=== PATIENT | male | born 1975 | race Caucasian/White ===

== ENCOUNTER → 2021-09-15 15:02 | Outpatient (CLI) | payer OTHER, SELFPAY | PROVIDERS: Referring Provider Internal Medicine; Visit Provider Internal Medicine | DX: Z23 Encounter for immunization (principal) | CPT/HCPCS: 90471; 90686 ==

== ENCOUNTER → 2022-10-05 12:04 | Outpatient (CLI) | payer OTHER, SELFPAY | PROVIDERS: Referring Provider Internal Medicine; Visit Provider Internal Medicine | DX: Z23 Encounter for immunization (principal) | CPT/HCPCS: 90471; 90686 ==

== ENCOUNTER → 2022-12-28 10:37 | Outpatient (CLI) | payer OTHER, SELFPAY ==
[2022-12-28 11:24] LABS: Add Manual Diff / Slide Review NO; Basophils Absolute Auto 0 /uL (0-100); Basophils Percent Auto 0.5 % (0-2); Eosinophils Absolute Auto 200 /uL (0-450); Eosinophils Percent Auto 3.4 % (2-4); Hematocrit 40.2 % (41-53); Hemoglobin 14.2 g/dL (13.5-17.5); Lymphocytes Absolute Auto 1800 /uL (1100-4500); Lymphocytes Percent Auto 27.2 % (25-40); Mean Corpuscular HGB Conc 35.4 % (30-36); Mean Corpuscular Hemoglobin 34.9 PG (26-34); Mean Corpuscular Volume 98.6 fL (80-100); Monocytes Absolute Auto 600 /uL (0-900); Monocytes Percent Auto 8.4 % (3-14); Neutrophils Absolute Auto 4100 /uL (1500-7000); Neutrophils Percent Auto 60.5 % (50-75); Platelet Count 234 X10^3/uL (150-400); Red Blood Cell Count 4.07 X10^6/uL (4.5-5.9); Red Cell Distribution Width 12.7 % (11.6-14.8); White Blood Cell Count 6.7 X10^3/uL (4.5-11.0)
[2022-12-28 11:52] LABS: Alanine Aminotransferase 35 IU/L (<50); Albumin 4.2 g/dL (3.5-5.0); Albumin Globulin Ratio 1.3 (1.0-2.8); Alkaline Phosphatase 55 U/L (38-126); Aspartate Aminotransferase 29 IU/L (17-59); Bilirubin Total 0.4 mg/dL (0.2-1.3); Blood Urea Nitrogen 15 mg/dL (9-20); Calcium 9.3 mg/dL (8.4-10.2); Carbon Dioxide 27 mmol/L (22-32); Chloride 101 mmol/L (98-107); Estimated Glomerular Filt Rate > 60 mL/min (>60); Globulin 3.3 g/dL (1.7-4.1); Glucose 99 mg/dL (70-100); HEMOLYSIS < 15 (0-50); Potassium 4.4 mmol/L (3.4-5.1); Sodium 137 mmol/L (137-145); Total Protein 7.5 g/dL (6.3-8.2)
[2022-12-28 12:40] LABS: Vitamin B12 273 pg/mL (239-931)
[2022-12-28 16:56] LABS: Hep C Virus Ab w/Reflex Quant NEGATIVE s/c (NEGATIVE)
[2023-01-02 03:41] LABS: Methylmalonic Acid,Serum 293 nmol/L (0-378)
== END ==
PROVIDERS: PCP Family Medicine; Referring Provider Family Medicine; Visit Provider Family Medicine
DX: Z11.59 Encounter for screening for other viral diseases (principal); I10 Essential (primary) hypertension; E78.5 Hyperlipidemia, unspecified; D75.89 Other specified diseases of blood and blood-forming organs
CPT/HCPCS: 36415; 80053; 82607; 83921; 85025; 86803

== ENCOUNTER → 2023-09-10 10:26 | Outpatient (CLI) | payer OTHER, SELFPAY | PROVIDERS: PCP Family Medicine; Referring Provider Family Medicine; Visit Provider Family Medicine | DX: Z23 Encounter for immunization (principal) | CPT/HCPCS: 90471; 90686 ==

== ENCOUNTER → 2023-10-24 08:36 | Outpatient (CLI) | payer OTHER, SELFPAY ==
[2023-10-28 14:44] LABS: Testosterone % Fr + Wkly bound 13.7 % (9.0-46.0); Testosterone Fr+Wkly bound 40.7 ng/dL (40.0-250.0); Testosterone, Total 296.9 ng/dL (264.0-916.0)
== END ==
PROVIDERS: PCP Family Medicine; Referring Provider Family Medicine; Visit Provider Family Medicine
DX: E78.5 Hyperlipidemia, unspecified (principal); I10 Essential (primary) hypertension
CPT/HCPCS: 36415; 84403

== ENCOUNTER → 2024-02-26 09:20 | Outpatient (CLI) | payer OTHER, SELFPAY ==
[2024-02-26 11:18] LABS: Add Manual Diff / Slide Review NO; Basophils Absolute Auto 0 /uL (0-100); Basophils Percent Auto 0.5 % (0-2); Eosinophils Absolute Auto 300 /uL (0-450); Hematocrit 41.7 % (41-53); Hemoglobin 14.5 g/dL (13.5-17.5); Lymphocytes Absolute Auto 2000 /uL (1100-4500); Lymphocytes Percent Auto 30.2 % (25-40); Mean Corpuscular HGB Conc 34.8 % (30-36); Mean Corpuscular Hemoglobin 35.1 PG (26-34); Mean Corpuscular Volume 100.7 fL (80-100); Monocytes Absolute Auto 600 /uL (0-900); Monocytes Percent Auto 8.9 % (3-14); Neutrophils Absolute Auto 3700 /uL (1500-7000); Neutrophils Percent Auto 55.4 % (50-75); Platelet Count 247 X10^3/uL (150-400); Red Blood Cell Count 4.14 X10^6/uL (4.5-5.9); Red Cell Distribution Width 12.7 % (11.6-14.8); White Blood Cell Count 6.6 X10^3/uL (4.5-11.0)
[2024-02-26 12:32] LABS: Alanine Aminotransferase 42 IU/L (<50); Albumin 4.1 g/dL (3.5-5.0); Albumin Globulin Ratio 1.4 (1.0-2.8); Alkaline Phosphatase 55 U/L (38-126); Aspartate Aminotransferase 34 IU/L (17-59); Bilirubin Total 0.6 mg/dL (0.2-1.3); Blood Urea Nitrogen 16 mg/dL (9-20); Calcium 8.7 mg/dL (8.4-10.2); Carbon Dioxide 26 mmol/L (22-32); Chloride 105 mmol/L (98-107); Cholesterol 206 mg/dL (140-199); Estimated Glomerular Filt Rate > 60 mL/min (>60); Globulin 2.9 g/dL (1.7-4.1); Glucose 108 mg/dL (70-100); HDL Cholesterol 50 mg/dL (40-60); HEMOLYSIS < 15 (0-50); LDL Cholesterol Calculated 116 mg/dL (<100); Potassium 4.3 mmol/L (3.4-5.1); Sodium 136 mmol/L (137-145); Triglycerides 198 mg/dL (35-150)
[2024-02-26 13:17] LABS: Vitamin B12 277 pg/mL (239-931)
[2024-02-26 15:32] LABS: Hemoglobin A1C% w Est Avg Glu 5.3 % (4.0-6.0)
[2024-02-26 15:51] LABS: Vitamin D 25 Hydroxy (D3) 18.1 ng/mL (30.0-100.0)
== END ==
LOC: LAB 09:23
PROVIDERS: PCP Family Medicine; Referring Provider Nurse Practitioner Family; Visit Provider Nurse Practitioner Family
DX: E78.5 Hyperlipidemia, unspecified (principal); I10 Essential (primary) hypertension; R53.83 Other fatigue; Z13.1 Encounter for screening for diabetes mellitus
CPT/HCPCS: 36415; 80053; 80061; 82306; 82607; 83036; 84402; 84403; 85025

== ENCOUNTER → 2024-08-18 16:22 | Outpatient (CLI) | payer OTHER, SELFPAY ==
--- NOTE | 2024-08-18 16:23 | DI.RAD.S_ITS ---
PROCEDURE: XR KNEE RT 3V INDICATIONS: Right knee pain TECHNIQUE: 3 views of the knee were acquired. COMPARISON: None. FINDINGS: Bones: No fractures or dislocations. No suspicious bony lesions. Soft tissues: Small joint effusion. No suspicious soft tissue calcifications. IMPRESSION: Small joint effusion. Otherwise, no acute fracture or dislocation of the right knee. Dictated by: Casper Mccall M.D. on 08/18/2024 at 17:03 Approved by: Casper Mccall M.D. on 08/18/2024 at 17:04
== END ==
PROVIDERS: PCP Nurse Practitioner Family; Referring Provider Physician Assistant Surgical; Visit Provider Physician Assistant Surgical
DX: M25.461 Effusion, right knee (principal); M25.561 Pain in right knee
CPT/HCPCS: 73562

== ENCOUNTER → 2024-09-15 09:19 | Outpatient (CLI) | payer OTHER, SELFPAY ==
--- NOTE | 2024-09-15 09:20 | DI.MRI.S_ITS ---
PROCEDURE: MR KNEE RT WO CON INDICATIONS: meniscus tear, lateral TECHNIQUE: Noncontrast sagittal PD fast spin echo and T2 fast spin echo with fat saturation, sagittal 3-D FLASH with fat saturation; coronal T1 spin echo and PD fast spin echo with fat saturation, and axial PD fast spin echo with fat saturation through the knee. COMPARISON: [facility], CR, XR KNEE RT 3V, 08/18/2024, 15:54. [facility] [place], CR, XR KNEE STANDING BILATERAL, 09/09/2024, 8:43. FINDINGS: Image quality: Excellent. Menisci: T2 hyperintense signal involving medial periphery of posterior horn medial meniscus extending to inferior articulating surface concerning for subtle oblique tear in this area. No evidence of focal lateral meniscal tear. The meniscal root ligaments appear intact. Cruciate ligaments: There is suggestion of moderate grade partial-thickness tear involving proximal ACL near its femoral insertion. The posterior cruciate ligament is intact. Medial structures: The medial collateral ligament appears mildly thickened with surrounding soft tissue edema. Visualized portions of the pes anserinus tendons appear normal. No abnormal bursal fluid. Lateral structures: The lateral collateral ligament is thickened with intrasubstance T2 hyperintense signal at its femoral insertion. The long and short heads of the biceps femoris tendon appear intact. The popliteus tendon appears normal. Iliotibial band appears normal. Anterior structures: Distal quadriceps tendinosis at its superior patellar insertion is seen. Proximal patellar tendinosis is also noted. Patellar alignment is normal. Bones and cartilage: Marrow edema involving lateral femoral condyle weight-bearing portion with subcortical T1 hypointense signal concerning for nondisplaced subchondral fracture versus contusion. Edema is also seen involving posterior medial periphery of medial tibial plateau. Mild tricompartmental osteoarthritis and low-grade chondromalacia is seen. Joint space: There is small knee joint fluid. There is a tiny popliteal cyst. Normal appearing synovial plicae are incidentally noted. IMPRESSION: 1. Bony contusion versus subchondral fracture involving weight-bearing portion of lateral femoral condyle with extensive marrow edema. Mild contusion is also seen involving posterior medial periphery of medial tibial plateau. No displaced fracture or dislocation. Mild tricompartmental osteoarthritis and low-grade chondromalacia. 2. Finding may represent very subtle oblique tear involving medial periphery of posterior horn medial meniscus extending to inferior articulating surface. No evidence of lateral meniscal tear. 3. Moderate grade partial-thickness tear involving proximal ACL near its femoral insertion. No ACL rupture. The PCL is intact. 4. Sprain/low-grade partial-thickness tear involving proximal LCL near its femoral insertion. Low-grade MCL sprain. 5. Distal quadriceps tendinosis and proximal patellar tendinosis. 6. Small joint effusion, no loose bodies. Dictated by: Jean Paul Ortiz M.D. on 09/15/2024 at 13:00 Approved by: Jean Paul Ortiz M.D. on 09/15/2024 at 13:08
== END ==
PROVIDERS: PCP Nurse Practitioner Family; Referring Provider Orthopaedic Surgery Foot and Ankle Surgery; Visit Provider Orthopaedic Surgery Foot and Ankle Surgery
DX: S80.01XA Contusion of right knee, initial encounter (principal); S83.511A Sprain of anterior cruciate ligament of right knee, initial encounter; S83.421A Sprain of lateral collateral ligament of right knee, initial encounter; S83.411A Sprain of medial collateral ligament of right knee, initial encounter; M17.11 Unilateral primary osteoarthritis, right knee; M94.261 Chondromalacia, right knee; M25.461 Effusion, right knee; M23.91 Unspecified internal derangement of right knee
CPT/HCPCS: 73721

== ENCOUNTER → 2025-01-30 11:23 | Outpatient (CLI) | payer OTHER, SELFPAY ==
--- NOTE | 2025-01-30 11:25 | DI.MRI.S_ITS ---
PROCEDURE: MR KNEE RT WO CON INDICATIONS: INTERNAL DERANGEMENT RT KNEE,WORSENING KNEE PAIN TECHNIQUE: Noncontrast sagittal PD fast spin echo and T2 fast spin echo with fat saturation, sagittal 3-D FLASH with fat saturation; coronal T1 spin echo and PD fast spin echo with fat saturation, and axial PD fast spin echo with fat saturation through the knee. COMPARISON: [facility], MR, MR KNEE RT WO CON, 09/15/2024, 12:21. FINDINGS: Image quality: Excellent. Medial structures: Markedly abnormal appearance of the medial femoral condyle with low T1 high T2 signal, bone edema suspicious for osteochondral injury without focal cartilage defect or loose body. Series 14, image 20 demonstrates thin line of subchondral fluid. Direct trauma bone contusion or other cause of bone edema could be considered. There is new increased T2 weighted signal/edema in the posterior-distal aspect of the vastus medialis muscle and tendon suspicious for muscle injury/tear. Diffuse soft tissue edema anterior-medially with possible medial patellar retinaculum injury/tear. Edema surrounds the medial collateral ligament without abnormal thickening, suspected grade 1 injury. The semimembranosus tendon insertion is intact. Visualized portions of the pes anserinus tendons appear normal. Menisci: Attenuation, diffuse thinning of the anterior horn of the medial meniscus extending into the mid body, new but may be chronic in the interval since the prior exam. Anterior horn is displaced anteriorly on the sagittal images. Mild blunting of the apex of the posterior horn of the medial meniscus. Otherwise the lateral meniscus appears intact without focal tear exiting to a surface. Cruciate ligaments: Mild increased T2 weighted signal and thickening of the proximal attachment of the anterior cruciate ligament similar to the prior exam likely chronic injury/strain with but with intact fibers without full-thickness tear. Posterior cruciate ligament is intact. Lateral structures: Mild thickening and increased T2 weighted signal likely chronic proximal lateral collateral ligament as well as in the attachment of the popliteus tendon similar to the prior exam. The long and short heads of the biceps femoris tendon appear intact. Iliotibial band appears normal. Anterior structures: The quadriceps and patellar tendons appear intact. Patellar alignment is normal. No femoral trochlear dysplasia or ventral trochlear prominence. No edema in the infrapatellar fat pad. Bones and cartilage: The previously noted diffuse edema in the lateral femoral condyle is markedly decreased with a residual 1.2 centimeter diameter area of low T1 high T2 signal/edema in the posterior half of the lateral femoral condyle (series 10, 11, image 13). Diffuse edema in the medial femoral condyle as described above. Moderate diffuse cartilaginous thinning in the medial greater than lateral and patellofemoral compartments mildly progressed. Joint space: Mild knee joint effusion. Small 2 centimeter cc by 2 centimeter AP x 1 centimeter transverse popliteal cyst mildly progressed. IMPRESSION: New abnormal bone edema osteochondral injury, bone contusion or other in the medial femoral condyle as discussed above. Small residual area of edema in the lateral femoral condyle. Abnormal signal/injury/tear of the distal vastus medialis muscle and tendon and possible medial patellar retinaculum injury/tear. New diffuse attenuation and thinning suspected chronic tear and degenerative changes of the anterior horn of the medial meniscus as discussed above. Other findings as above. Dictated by: Ricco Patel M.D. on 02/02/2025 at 8:30 Approved by: Ricco Patel M.D. on 02/02/2025 at 10:19
== END ==
PROVIDERS: PCP Nurse Practitioner Family; Referring Provider Physician Assistant; Visit Provider Physician Assistant
DX: M23.91 Unspecified internal derangement of right knee (principal); M25.461 Effusion, right knee
CPT/HCPCS: 73721